=== PATIENT | male | born 1965 | race Caucasian/White ===

== ENCOUNTER → 2020-05-25 11:48 | Outpatient (REF) | payer BC, SELFPAY | LOC: ANHLAB 11:48 | PROVIDERS: Visit Provider Nurse Practitioner | DX: D49.2 Neoplasm of unspecified behavior of bone, soft tissue, and skin (principal) | CPT/HCPCS: 88305; 88342 ==

== ENCOUNTER 2021-06-29 08:18 | Outpatient (CLI) | payer OTHER, SELFPAY ==
--- NOTE | 2021-06-29 08:30 | ECG_ITS ---
Measurements Intervals [place] Rate: 66 P: -41 MS: 141 QRS: -10 QRSD: 100 T: 46 QT: 407 QTc: 429 Interpretive Statements SINUS RHYTHM CONSIDER INFERIOR INFARCT, AGE INDETERMINATE BORDERLINE T WAVE ABNORMALITY- HIGH LATERAL LEADS BASELINE ARTIFACT- I, II, AVR, AVL ABNORMAL ECG Electronically Signed On 06-29-2021 9:04:22 CDT by rPanav Carranza D.O.
[2021-06-29 08:43] LABS: Hematocrit 44.3 % (42.0-52.0); Hemoglobin 14.4 g/dL (14.0-18.0)
== END 2021-06-29 08:19 | disposition home or self-care (01) ==
LOC: ANHSURGERY 08:22
PROVIDERS: Anesthesiology; PCP Pediatrics; Visit Provider Surgery Plastic and Reconstructive Surgery
DX: Z01.818 Encounter for other preprocedural examination (principal); Z98.890 Other specified postprocedural states; Z41.1 Encounter for cosmetic surgery; R94.31 Abnormal electrocardiogram [ECG] [EKG]
CPT/HCPCS: 36415; 85014; 85018; 93005

== ENCOUNTER 2021-07-01 00:02 | Day surgery (SDC) | payer OTHER, SELFPAY ==
[2021-06-28 15:15] VITALS: BMI 23.8
--- NOTE | 2021-06-28 15:17 | PC.NURSE ---
Report to the Outpatient Waiting Room, entrance under the green pavilion located off [facility], at time _0700_ on date _[id number]_. OR Time: _0900__. - You and your visitor will be asked a series of questions to screen for COVID 19 for your protection. - Only one visitor is allowed at this time. - The patient visitor is requested to leave or wait in car when not with patient. - A mask is required within the hospital. Patients may have clear liquids (water, carbonated beverages, clear teas, apple juice) until 3 hours prior to surgery with a maximum of 20 ounces. - No food from midnight until time of surgery Take the following medications with a SIP of water the morning of surgery: ____Flonase if needed. Medications to discontinue per physician Date to take last dose Please no make-up, nail hebrew, hairspray, perfume, deodorant, or body powder the day of surgery. No jewelry (including any body piercings) or valuables the day of surgery, leave them at home. Please take a shower or bath the night before, or the morning of, surgery with an antibacterial soap. Wear comfortable, loose fitting clothing. Children are encouraged to wear pajamas. - Jewelry must be removed prior to entering the operating room. Rings and piercings that are not removed may be cut off. - The hospital will not accept responsibility for valuables. - Please leave all valuables, including medications, at home the day of surgery. If you are going home after surgery, a licensed local driver must drive you home. - NO public transportation without another adult. - We recommend that an adult stay with you for 24 hours following discharge. - We also recommend that you do not drive, make important decision, drink alcoholic beverages, or take any drugs that were not prescribed by your health care provider for at least 24 hours after your discharge time. Follow any additional instructions given to you from your surgeon. If you or anyone in your household have experienced Covid symptoms in the past week, please notify your surgeon or the nurse liaison at the phone number below for possible testing. Telephone instructions given to __Patient and asked if any additional questions and then verbalized understanding. Patient advised to call surgeon office or pre surgery nurse liaison [phone] if any additional questions.
[2021-07-01] VITALS (14 sets, daily range): BP systolic 109–131; BP diastolic 67–79; PULSE 72–85; RESP 11–18; TEMP 36.2–37.5; O2SAT 92–99; BMI 24.1
[2021-07-01 07:53] LABS: Urine Cotinine NEGATIVE
--- NOTE | 2021-07-01 08:08 | WPDANESEPPF ---
Anes - Initial Pre Proc Eval Procedure: Operation Date: 07/01/21 09:00 Proposed Procedures p Face and Neck Lift - Ino Ram MD s Bilateral Direct Brow Lift - Ino Ram MD s Bilateral Upper Eyelid Blepharoplasty - Ino Ram MD Date/Time: 07/01/21 08:08 Surgeon: Ino Ram MD Pre Op Diagnosis: Skin Laxity Patient Data Age: 56 Gender: M Height: 1.93 m Weight: 88.7 kg Allergies Allergy/AdvReac Type Severity Reaction Status Date / Time No Known Allergies Allergy Verified 07/01/21 08:06 Home Medications Medication Instructions Recorded Confirmed Type gabapentin 300 mg capsule 300 mg PO HS 05/25/20 06/28/21 History metoprolol succinate 25 mg 25 mg PO HS 05/25/20 06/28/21 History tablet,extended release 24 hr docusate sodium 100 mg capsule 100 mg PO DAILY #14 cap 06/15/21 Rx hydrocodone 5 mg-acetaminophen 325 1 tablet PO Q6H PRN #30 tablet 06/15/21 06/15/21 Rx mg tablet ondansetron 4 mg disintegrating 4 mg PO Q8H #21 tablet 06/15/21 Rx tablet fexofenadine [Katharina] 180 mg PO DAILY 06/28/21 06/28/21 History finasteride 5 mg PO HS 06/28/21 06/28/21 History fluticasone propionate [Flonase] 2 spray INTRANASAL BID 06/28/21 06/28/21 History gabapentin 100 mg PO HS 06/28/21 06/28/21 History tadalafil [Cialis] 20 mg PO DAILY PRN 06/28/21 06/28/21 History Laboratory Tests 07/01/21 07:38 Cotinine Negative Patient hx anesthesia problems: other (states slow to awaken) Family hx anesthesia problems: none Results Review: All pre-operative results and documents have been reviewed as part of the pre-operative evaluation. [facility], LAT[facility] Past Medical History Medical History Hypertension Surgical History Surgical History History of brain surgery Tumor removed 2000 History of heart valve repair Social History Social History Smoking status: Never smoker Alcohol intake: current Drinks per week: 4 Substance use: never Living arrangements: with family Spiritual care concerns: No Anes - Eval Final PreProcedure Day of Procedure 07/01/21 08:08 Patient weight: normal Heart: regular rate and rhythm Lungs: clear to auscultation Airway: Mallampati scale class III (upper capped teeth; may need glidescope) Neurological: alert and oriented Last oral intake: >/= 8 hours ASA classification: III Emergent: no Anesthetic plan: proceed Anesthesia type and monitoring: general ETT (glidescope) and standard monitoring Results Review: All pre-operative results and documents have been reviewed as part of the pre-operative evaluation. Informed Consent: The patient's anesthetic plan and its attendant risks and benefits were discussed with the patient/family/POA. Questions were solicited and answers provided to the satisfaction of the patient/family/POA.
[2021-07-01] MEDS: LACTATED RINGERS 1,000 ML 30 ML IV CONT ×2 (08:15→14:51)
--- NOTE | 2021-07-01 08:31 | WPDHPUPDATE1 ---
History and Physical Update Update Date/Time: 07/01/21 08:31 History and Physical has been reviewed, including an updated exam of the patient. There are NO changes in the patient's condition. Risks, benefits, and alternatives have been discussed and questions answered. Patient agrees to proceed with procedure.
--- NOTE | 2021-07-01 08:55 | W.PM.PROC2 ---
Procedure Note - Detailed Date of Procedure 07/01/21 Pre-op Diagnosis Skin Laxity Post-op Diagnosis Same Procedure Performed Bilateral direct brow lift Bilateral upper lid blepharoplasty Facial rhytidectomy / cervicoplasty Surgeon Ino Ram MD Anesthesia General Description of Procedure Preoperatively risks, benefits, alternatives were discussed extensive detail. I want him to be very realistic about the risks involved as well as expectations. Made sure answered all of his questions to his satisfaction. He voiced clear understanding. Consent was obtained. He was marked in the preoperative holding area with his verification. An upper lid pinch was completed based on our markings with the brow corrected to ensure no lagophthalmos postoperatively. He was taken to the operating room placed supine on the operating room table. Anesthesia was provided by anesthesiology. He was prepped and draped in a standard sterile fashion. Surgical time-out was taken. Brow 1% lidocaine and 0.25% Marcaine with epinephrine was used anesthetize locally. A 15 blade used to excise the as skin at this location. I closed using 4-0 Monocryl followed by running 5 0 nylon. Blepharoplasty 1% lidocaine and 0.25% Marcaine with epinephrine was used anesthetize locally. Sharply incised and exised a skin flap.. I opened the muscle and septum. Removed just the excess adiposity that was present. Verified strict hemostasis. Closed using running subcuticular 5 0 Prolene which was ultimately held in position with Steri-Strips. Facial rhytidectomy / cervicoplasty Stab incisions were made and a tumescent solution to was utilized to tumesce the face and neck. Fifteen blade used to make a submental incision. Dissection continued down to the platysma was identified and I elevated the platysma. I then went sub platysmal and removed any excess adiposity. Verified strict hemostasis. I then approximated the platysma in a plication passive releasing inferiorly and a hyoid with 2-0 Vicryl in multiple layers. Fifteen blade used to make a postauricular incision extending behind the ear and elevated just above the level of this mass. Inferior lateral to the mandibular angle I did incise the platysma and elevated slightly with care taken to protect all neurovascular structures with no evidence of injury. This was sutured to the mastoid with 2-0 Vicryl. I then plicated the platysma and a running fashion in multiple layers using 2-0 Vicryl. Bilateral jenelle drains were placed coming out postauricular and sutured into place with 4-0 vicryl. This was bilateral. I verified strict hemostasis. Resected excess skin. I closed in the hairline with ada, preauricular with 5 0 nylon postauricular 5 0 chromic and again ada in the hairline. A submental was closed using 3-0 Monocryl followed by running subcuticular 4-0 Monocryl and Steri-Strips. Dressings were placed. Patient was woken taken PACU without difficulty. All instrument sponge counts were correct at the end of the case. Estimated Blood Loss 75 Drains No Packing No Pathology None sent Complications No immediate complications Condition Stable Disposition PACU
[2021-07-01] MEDS: TRANEXAMIC ACID 1,000MG/ISO100 1,000 MG/100 ML BAG 200 MG IVPB (09:20)
[2021-07-01] MEDS: ceFAZolin 2 GM/D5W 50 ML 2 GM/50 ML BAG IVPB (09:45)
[2021-07-01] MEDS: LIDO 1%/EPINEPHRINE/PF 1:200,000 30 ML VIAL XX (09:56)
[2021-07-01] MEDS: BALANCED SALT SOLN OPHTH IRRIG 30 ML BTL 5 ML EACH EYE (09:56)
--- NOTE | 2021-07-01 12:18 | SUR.OPER ---
BED WARMER TO 106F. ET TUBE REMAINS OFF NOSE. POSITIONING UNCHANGED.
--- NOTE | 2021-07-01 13:37 | SUR.OPER ---
right brow lift and blepharoplasty [id number] left brow lift and blepharoplasty [id number] face and neck lift start 1110
[2021-07-01] MEDS: ceFAZolin SODIUM 1 GM VIAL IV PUSH (13:50)
[2021-07-01] MEDS: TETRACAINE HCL 0.5% OPHTH SOLN 4 ML BTL 4 DROP EACH EYE (14:23)
--- NOTE | 2021-07-01 15:04 | SUR.OPER ---
Dr Ram assessed eyes end of surgery/conjunctiva swelling lateral aspects of eye bilateral right greater then left/he will continue to assess. Tetracaine opthalmic eye drops placed in each eye. BSS to eyes post prep and post surgery in OR/no betadine noted in eyes per staff and Dr Ram.
--- NOTE | 2021-07-01 16:31 | ADMGEN ---
This patient, Reddy Nguyen, was admitted to 2 Medical Room 240-01. Patient/family oriented to hospital policies and general routines including ID bracelet, bed and alarms, visiting hours, pain management, procedures, bathroom and other care routines, personal items, smoking policy, room service/diet, and visiting hours. Information on how to activate the Rapid Response Team has been discussed. Patient/Family are encouraged to report perceived risks to care and to ask questions if they do not understand what they are told or what they should do.
[2021-07-01] MEDS: oxyCODONE/ACETAMINOPHEN (*CRX) 5-325 MG TABLET PO (17:32)
[2021-07-01] MEDS: ONDANSETRON INJ 4 MG/2 ML VIAL IV PUSH (17:32)
[2021-07-01] MEDS: FLUTICASONE PROPIONATE 0.05% NA SPR 16 GM BTL (*BKC) 2 SPRAY NASAL (17:54)
[2021-07-01] MEDS: GABAPENTIN 400 MG CAPSULE PO (20:29)
[2021-07-01] MEDS: FINASTERIDE 5 MG TABLET PO (20:29)
[2021-07-01] MEDS: DOCUSATE SODIUM 100 MG CAPSULE PO (20:29)
[2021-07-01] MEDS: METOPROLOL SUCCINATE EXT REL 25 MG TABCR PO (20:29)
[2021-07-02 02:00] VITALS: BP 104/71; PULSE 87; RESP 18; TEMP 36.6; O2SAT 95
[2021-07-02] MEDS: oxyCODONE/ACETAMINOPHEN (*CRX) 5-325 MG TABLET PO ×2 (02:52→10:21)
[2021-07-02 06:00] VITALS: BP 110/71; PULSE 81; RESP 18; TEMP 36.9; O2SAT 96
--- NOTE | 2021-07-02 07:57 | WPDPN ---
Progress Note: A&P Assessment and Plan (1) Encounter for cosmetic surgery: Code(s): Z41.1 - Encounter for cosmetic surgery Status: Acute Assessment and Plan: Doing well after Bilateral direct brow lift Bilateral upper lid blepharoplasty Facial rhytidectomy / cervicoplasty I notice a mild right facial weakness with smile when compared to the left; however, he is able to fully smile. Will monitor. Will plan for discharge home. I will see him back. Today we had a lengthy discussion about the care. What monitor for. Activity limitations. The importance of ambulation. He knows what is a medical emergency. He will call with any questions or concerns, otherwise I will see him back. Subjective Date/time seen: 07/02/21 07:57 He says he is doing very well this morning. Pain is controlled. No nausea vomiting. No fevers or chills. No shortness of breath. No chest pain. He has been up to the bathroom regularly with no concerns. Review of Systems Review of Systems: All systems reviewed & are unremarkable except as noted in HPI and below Exam Narrative: Alert and oriented no obvious distress Respiratory unlabored Patient is healing well. There is no signs of infection. No hematoma. No seroma. Good color and capillary refill. He has a full smile. Able to purse lip / whistle. No lagophthalmos. Normal gross vision. On full smile he has a mild weakness on the right as compared to the left but is able to obtain a full smile. No calf tenderness. Negative Homans Objective Data Vital Signs Vital Signs: Vital Signs - 24 hr 07/01/21 14:51 07/01/21 15:05 07/01/21 15:20 Temperature 37.5 C Pulse Rate 85 81 80 Respiratory Rate 11 L 14 12 Blood Pressure 113/67 114/76 111/72 Pulse Oximetry 96 99 99 07/01/21 15:35 07/01/21 15:50 07/01/21 16:01 Temperature 36.2 C L Pulse Rate 79 79 78 Respiratory Rate 14 14 12 Blood Pressure 112/77 112/77 109/76 Pulse Oximetry 93 92 94 07/01/21 16:15 07/01/21 16:30 07/01/21 17:00 Temperature 36.9 C 37.0 C 36.8 C Pulse Rate 78 77 76 Respiratory Rate 16 18 16 Blood Pressure 118/73 119/71 125/79 Pulse Oximetry 97 93 97 07/01/21 18:00 07/01/21 20:00 07/01/21 20:29 Temperature 36.9 C Pulse Rate 78 78 84 Respiratory Rate 18 18 Blood Pressure 123/78 Pulse Oximetry 92 92 07/01/21 22:00 07/02/21 02:00 07/02/21 06:00 Temperature 36.7 C 36.6 C 36.9 C Pulse Rate 84 87 81 Respiratory Rate 18 18 18 Blood Pressure 131/76 104/71 110/71 Pulse Oximetry 97 95 96 Intake/Output Intake/Output: Intake & Output 06/29/21 06/30/21 07/01/21 07/02/21 23:59 23:59 23:59 23:59 Intake Total 990 440 Output Total 0 300 Balance 990 140 Meds/Results Medications: Active Medications Generic Name Dose Route Start Last Admin Trade Name Freq PRN Reason Stop Dose Admin Diazepam 5 mg 07/01/21 14:28 Diazepam (*Crx) 5 Mg Tablet PO TID PRN Anxiety Docusate Sodium 100 mg 07/01/21 21:00 07/01/21 20:29 Docusate Sodium 100 Mg Capsule PO 100 mg Q12HR MANNY Administration Finasteride 5 mg 07/01/21 21:00 07/01/21 20:29 Finasteride 5 Mg Tablet PO 5 mg HS MANNY Administration Fluticasone Propionate 2 spray 07/01/21 17:00 07/01/21 17:54 Fluticasone Propionate 0.05% Na Spr 16 Gm Btl (*Bkc) NASAL 2 spray BID MANNY Administration Gabapentin 400 mg 07/01/21 21:00 07/01/21 20:29 Gabapentin 400 Mg Capsule PO 400 mg HS MANNY Administration Lactated Ringer's 1,000 mls @ 125 mls/hr 07/01/21 14:30 Lr - Lactated Ringers Iv IV CONT .Q8H MANNY Loratadine 10 mg 07/02/21 09:00 Loratadine 10 Mg Tablet PO QAM MANNY Metoprolol Succinate 25 mg 07/01/21 21:00 07/01/21 20:29 Metoprolol Succinate Ext Rel 25 Mg Tabcr PO 25 mg HS MANNY Administration Morphine Sulfate 2 mg 07/01/21 14:28 Morphine Sulfate (*Crx) 2 Mg/Ml Inj IV PUSH Q2H PRN Pain Ondansetron HCl 4 mg
--- NOTE | 2021-07-02 08:02 | P.DS_ITS ---
DS: Admitting Diagnosis Discharge Date 07/02/2021 Admitting Diagnosis Encounter cosmetic surgery DS: Discharge Diagnosis Discharge Diagnosis (1) Encounter for cosmetic surgery: Code(s): Z41.1 - Encounter for cosmetic surgery Status: Acute DS: Summary Hospital Course Hospital Course: He underwent: * Bilateral direct brow lift * Bilateral upper lid blepharoplasty * Facial rhytidectomy / cervicoplasty Postoperatively has done well. Will discharge home. I will see him back. Time Spent with Patient Time attestation: Total time spent providing and/or coordinating discharge services: Exam Narrative: Alert and oriented no obvious distress Respiratory unlabored Patient is healing well. There is no signs of infection. No hematoma. No seroma. Good color and capillary refill. He has a full smile. Able to purse lip / whistle. No lagophthalmos. Normal gross vision. On full smile he has a mild weakness on the right as compared to the left but is able to obtain a full smile. No calf tenderness. Negative Homans Discharge Plan Discharge Patient Disposition: Home, Self-Care Discharge Instructions: POST OPERATIVE DISCHARGE INSTRUCTIONS INO RAM M.D. [facility] PLASTIC SURGERY [facility] [address] [place] [address] * No driving for 24 hours after anesthesia and while you are taking pain medication. * Take all prescribed medication as directed * Diet as tolerated. * No lifting or activity that raises blood pressure for 48 hours. * Regular walking / ambulation. * May shower.. Once you shower do not take pain medication before showering as the combination of medication and heat may cause you to feel dizzy or pass out. * No pools or tubs for 2 weeks. * Call with any questions or concerns. * Dressing Care: Continue face lift wrap / ear protection 23 hours per day. If you have any questions or concerns, please call the office . If it is after hours you will be directed to the licensed occupational therapist exchange. Shortness of breath, chest pain, or other medical emergency dial 911 / proceed to the Emergency Room. Stand Alone Forms: General Discharge Instructions Follow-up/Referrals: Ino Ram MD [Physician] - 1 Week Discharge Medications: Continued gabapentin 300 mg capsule 300 mg PO HS RF: 0 metoprolol succinate 25 mg tablet extended release 24 hr 25 mg PO HS RF: 0 ondansetron 4 mg tablet,disintegrating 4 mg PO Q8H Qty: 21 RF: 0 docusate sodium [Colace] 100 mg capsule 100 mg PO DAILY Qty: 14 RF: 0 hydrocodone-acetaminophen 5-325 mg tablet 1 tablet PO Q6H PRN (Reason: pain) Qty: 30 RF: 0 fexofenadine 180 mg Tablet 180 mg PO DAILY RF: 0 gabapentin 100 mg capsule 100 mg PO HS RF: 0 fluticasone propionate 50 mcg/actuation [place],Suspension 2 spray INTRANASAL BID RF: 0 finasteride 5 mg Tablet 5 mg PO HS RF: 0 tadalafil [Cialis] 20 mg Tablet 20 mg PO DAILY PRN (Reason: hair growth.) RF: 0
[2021-07-02] MEDS: DOCUSATE SODIUM 100 MG CAPSULE PO (08:33)
[2021-07-02] MEDS: LORATADINE 10 MG TABLET PO (08:34)
[2021-07-02] MEDS: FLUTICASONE PROPIONATE 0.05% NA SPR 16 GM BTL (*BKC) 2 SPRAY NASAL (08:34)
[2021-07-02 10:14] VITALS: BP 106/71; PULSE 80; RESP 18; TEMP 36.6; O2SAT 96
== END 2021-07-02 10:55 | disposition home or self-care (01) ==
LOC: ANHSURGERY 14:28 → ANH2MED 15:29
PROVIDERS: PCP Pediatrics; Visit Provider Surgery Plastic and Reconstructive Surgery
PROC: (CPT 15824; principal; 2021-07-01 09:00)
PROC: (CPT 15824; 2021-07-01 09:00)
PROC: (CPT 15822; 2021-07-01 09:00)
DX: Z41.1 Encounter for cosmetic surgery (principal); L57.4 Cutis laxa senilis; I10 Essential (primary) hypertension; Z79.899 Other long term (current) drug therapy
CPT/HCPCS: 15822; 15824; 15825; 80307; A9270; J0171; J0330; J0690; J1100; J1170; J2250; J2370; J2405; J2704; J3010; J7030; J7120; Q9968

== ENCOUNTER → 2022-02-10 14:15 | Outpatient (CLI) | payer BC, SELFPAY ==
--- NOTE | ~2022-02-10 | MR_ITS ---
EXAMINATION: MR brain/brain stem wo/w con DATE: 02/10/2022 15:09 INDICATION: Brain tumor. TECHNIQUE: Magnetic resonance imaging (MRI) of the brain and brainstem was performed without and with 20 mL MultiHance intravenous contrast. COMPARISON: None. FINDINGS: There are changes of left frontal craniotomy. There are scattered areas of nonspecific incr eased T2-weighted signal intensity in the cerebral white matter, which is within normal limits for th e patient's age. There is no intracranial hemorrhage, acute infarction, or abnormal intracranial mass lesion. The ventricles are normal in size. The orbits are normal. There is mild mucosal thickening i n the paranasal sinuses. The mastoid air cells are normal. IMPRESSION: 1. Normal aging brain. Reviewed, dictated and finalized at location A. GER DRUG SAFETY IMPRESSION: 1. Normal aging brain.
== END ==
PROVIDERS: PCP Nurse Practitioner Family; Visit Provider Nurse Practitioner Family
DX: R51.9 Headache, unspecified (principal); Z87.898 Personal history of other specified conditions; K92.89 Other specified diseases of the digestive system; R10.9 Unspecified abdominal pain; J34.81 Nasal mucositis (ulcerative); J32.9 Chronic sinusitis, unspecified
CPT/HCPCS: 70553; A9577